=== PATIENT | female | born 1970 | race African-American/Black ===

== ENCOUNTER 2018-05-20 22:58 | Emergency (ER) | payer BC, SELFPAY ==
[2018-05-20] MEDS ORDERED: Cephalexin 500 MG CAP ONE (23:38)
== END 2018-05-20 23:44 | disposition home or self-care (01) ==
LOC: MADERS 22:58
DX: K05.219 Aggressive periodontitis, localized, unspecified severity (principal); F17.210 Nicotine dependence, cigarettes, uncomplicated; I10 Essential (primary) hypertension
CPT/HCPCS: 99283